=== PATIENT | male | born 1985 | race Caucasian/White ===

== ENCOUNTER 2016-11-23 10:06 | Emergency (ER) | payer OTHER, SELFPAY ==
[2016-11-23] MEDS ORDERED: IBUPROFEN 600 MG TAB PO STA (10:29)
--- NOTE | 2016-11-23 11:12 | XR ---
EXAMINATION TYPE: XR knee complete RT DATE OF EXAM: 11/23/2016 COMPARISON: NONE HISTORY: Pain TECHNIQUE: Three-view right knee FINDINGS: Joint spaces are preserved. No joint effusion is evident. No acute fractures evident. IMPRESSION: 1. Normal three-view right knee. 2. Follow-up exams can be performed 7-10 days from acute trauma for continued pain.
--- NOTE | 2016-11-23 11:25 | ED ---
General Adult HPI - General Chief complaint: Extremity Injury, Lower Stated complaint: Right knee pain Time Seen by Provider: 11/23/16 10:18 Source: patient, RN notes reviewed Mode of arrival: wheelchair Limitations: no limitations - History of Present Illness Initial comments: 30-year-old male presents with a 2 day history of right knee pain. Patient states that he felt pop in his knee followed by pain which has progressively worsened over the past several days. There was no trauma, he states he was just bending his knee at the time. Pain is worse with movement. He had similar incident with his left knee that did require ACL repair. Patient denies any fever. Denies warmth over the joint. Denies any hip or ankle pain on the right. - Related Data Home Medications Medication Instructions Recorded Confirmed Baclofen [Lioresal] 10 mg PO Q8H PRN 03/27/16 03/27/16 Cetirizine HCl [Zyrtec] 10 mg PO DAILY 03/27/16 03/27/16 Multivitamins, Thera [Multivitamin] 1 tab PO DAILY 03/27/16 03/27/16 Mayo-3 Fatty Acids/Fish Oil [Fish 1 cap PO DAILY 03/27/16 03/27/16 Oil 1,000 mg Softgel] Previous Rx's Medication Instructions Recorded Ibuprofen [Motrin] 600 mg PO Q8HR PRN #24 tab 11/23/16 Allergies Allergy/AdvReac Type Severity Reaction Status Date / Time No Known Allergies Allergy Verified 11/23/16 10:14 Review of Systems ROS Statement: Those systems with pertinent positive or pertinent negative responses have been documented in the HPI. ROS Other: All systems not noted in ROS Statement are negative. Past Medical History Past Medical History: Hypertension History of Any Multi-Drug Resistant Organisms: None Reported Past Surgical History: Appendectomy, Orthopedic Surgery, Tonsillectomy Additional Past Surgical History / Comment(s): Left ACL, left shoulder x3 Past Anesthesia/Blood Transfusion Reactions: No Reported Reaction Past Psychological History: No Psychological Hx Reported Smoking Status: Never smoker Past Alcohol Use History: Occasional Past Drug Use History: None Reported - Past Family History Mother History Unknown: Yes Family Medical History: Hyperlipidemia Father Family Medical History: No Reported History General Exam Limitations: no limitations General appearance: alert, in no apparent distress Head exam: Present: atraumatic, normocephalic Eye exam: Present: normal appearance, PERRL ENT exam: Present: normal exam, normal oropharynx Neck exam: Present: normal inspection. Absent: tenderness Respiratory exam: Present: normal lung sounds bilaterally. Absent: respiratory distress Cardiovascular Exam: Present: regular rate, normal rhythm GI/Abdominal exam: Present: soft. Absent: distended, tenderness Extremities exam: Present: full ROM, normal capillary refill, joint swelling, other (Right knee: Range of motion is normal, there is significant pain on active extension and flexion. Distal pulses are intact. There is a small joint effusion present. Popliteal artery pulses 2+. Knee is stable.). Absent : pedal edema Back exam: Present: normal inspection Neurological exam: Present: alert, oriented X3 Psychiatric exam: Present: normal affect, normal mood Skin exam: Present: warm, dry Course Vital Signs 11/23/16 10:09 Temperature 98.5 F Pulse Rate 68 Respiratory 16 Rate Blood Pressure 138/98 O2 Sat by Pulse 99 Oximetry Medical Decision Making - Medical Decision Making 30-year-old male with acute onset right knee pain. Patient states he felt a pop and does have a history of ACL injury on the left with minimal trauma. X- rays obtained in the emergency Department data for acute fracture dislocation. There is some mild effusion on examination, no warmth, no concern for septic arthritis. Patient is placed in a knee immobilizer, given prescription for pain medication and crutches and will follow up with orthopedic surgery as an outpatient. Disposition Clinical Impression: Knee clicking Disposition: HOME SELF-CARE Instructions: Knee Sprain (ED) Additional Instructions: Patient will follow-up with orthopedic surgery and return to the emergency department with worsening pain. Prescriptions: Ibuprofen [Motrin] 600 mg PO Q8HR PRN #24 tab PRN Reason: Pain Referrals: Mili Brown MD [Primary Care Provider] - 1-2 days Hector Tapia DO [Doctor of Osteopathic Medicine] - 1-2 days
[2016-11-23 11:33] VITALS: BP 130/71; PULSE 55; RESP 18; TEMP 97.1
== END 2016-11-23 11:33 | disposition home or self-care (01) ==
LOC: EC 10:06
DX: R29.898 Other symptoms and signs involving the musculoskeletal system (principal); M25.461 Effusion, right knee; Z79.899 Other long term (current) drug therapy; X50.1XXA Overexertion from prolonged static or awkward postures, initial encounter; Y93.89 Activity, other specified; Y92.009 Unspecified place in unspecified non-institutional (private) residence as the place of occurrence of the external cause
CPT/HCPCS: 73562; 99283; L1830

== ENCOUNTER → 2017-10-27 | Outpatient (CLI) | payer OTHER ==
--- NOTE | 2017-10-28 08:36 | CT ---
EXAMINATION TYPE: CT abdomen pelvis w con DATE OF EXAM: 10/27/2017 COMPARISON: NONE INDICATION: Abdominal cramping, change in bowel habits, heartburn and weight loss. DLP: 574.7 mGycm, Automated exposure control for dose reduction was used. CONTRAST: 100 mL of Isovue 300. Study performed with Oral Contrast TECHNIQUE: Axial images were obtained from above the diaphragm to the pubic rami in the axial plane a t 5 mm thick sections. Reconstructed images are reviewed on the computer in the coronal plane. FINDINGS: Limited CT sections are obtained the lung bases. The lung bases are clear. CT ABDOMEN: Liver: Normal Spleen: Normal Pancreas: Normal Adrenal glands: The adrenal glands are normal. Gallbladder: Normal Kidneys: No masses are evident. No hydronephrosis is present. No cysts are present. Delayed images were obtained through the kidneys, which remain unremarkable. Aorta: Normal Inferior vena cava: Normal. CT PELVIS: There is an area of thickening of the mid left abdominal small bowel. Series 3 image 48, series 7 audelia ge 36. An intussusception of the small bowel may be present at this location. Contrast passes well be yond this location and no obstruction is evident. There are loops of bowel which are incompletely dis tended or lack oral contrast limiting their evaluation. Few diverticuli are within the sigmoid colon. No acute diverticulitis is evident. Appendix: Appears to be surgically absent. Urinary bladder: Normal. Genitourinary structures: Prostate is unremarkable. Osseous structures: No suspicious lytic or sclerotic lesions. IMPRESSIONS: 1. There may be a small bowel intussusception within the left midabdomen without evidence of obstruc tion. 2. Examination otherwise appears unremarkable.
== END | disposition home or self-care (01) ==
LOC: RADCTMAIN 16:51
PROVIDERS: ATTEND Family Medicine
DX: R10.9 Unspecified abdominal pain (principal); R12 Heartburn; R19.4 Change in bowel habit; R63.4 Abnormal weight loss
CPT/HCPCS: 74177; Q9967

== ENCOUNTER → 2017-11-30 | Outpatient (CLI) | payer OTHER ==
--- NOTE | 2017-11-30 11:05 | NM ---
EXAMINATION TYPE: NM hepatobiliary w CCK DATE OF EXAM: 11/30/2017 COMPARISON: CT abdomen pelvis 10/27/2017 HISTORY: Right upper quadrant pain, gastroesophageal reflux disease TECHNIQUE: After the intravenous administration of 5.4 mCi Tc 99m Mebrofenin hepatobiliary scintigrap hy is performed. Immediate images post injection. FINDINGS: There is satisfactory initial accumulation of tracer by the liver. The gallbladder is visualized wit hin 6 minutes. The small bowel activity is noted within 4 minutes. At one hour CCK was administered , patient was injected with 1.7 mcg of Kinevac, and gallbladder ejection fraction is calculated at 89 %. Therefore there is no scintigraphic evidence of cystic or common bile duct obstruction to suggest acute cholecystitis. IMPRESSION: Gallbladder ejection fraction is 89%
== END | disposition home or self-care (01) ==
LOC: RADNMMAIN 06:59
PROVIDERS: ATTEND Surgery
DX: K21.9 Gastro-esophageal reflux disease without esophagitis (principal); R10.13 Epigastric pain; R10.11 Right upper quadrant pain
CPT/HCPCS: 78227; A9537; J2805

== ENCOUNTER 2017-12-15 08:31 | Day surgery (SDC) | payer OTHER ==
[2017-12-11 09:34] VITALS: BMI 26.2
[~2017-12-15 08:31] MED LIST: LACTATED RINGERS 1,000 ML IV SCH; LIDOCAINE 1% 20 ML VIAL (10MG/ML) FOR IV START INTRADERMA PRN
[2017-12-15] MEDS ORDERED: PROPOFOL 10 MG/ML 20 ML VIAL IV ONE (09:44)
--- NOTE | 2017-12-15 09:46 | P.GSHP ---
History of Present Illness H&P Date: 12/15/17 Chief Complaint: GERD [id number] male referred from Dr. Bo. Patient's had limited GERD. He presents today for EGD. Past Medical History Past Medical History: GERD/Reflux, Hypertension Additional Past Medical History / Comment(s): no rx for blood pressure, intussusception on CT, irregular bowel movements, History of Any Multi-Drug Resistant Organisms: None Reported Past Surgical History: Appendectomy, Orthopedic Surgery, Tonsillectomy Additional Past Surgical History / Comment(s): Left knee ACL, left shoulder x3- bankart procedure Past Anesthesia/Blood Transfusion Reactions: No Reported Reaction Smoking Status: Former smoker - Past Family History Mother History Unknown: Yes Family Medical History: No Reported History Father Family Medical History: No Reported History Medications and Allergies Home Medications Medication Instructions Recorded Confirmed Type Cetirizine HCl [Zyrtec] 10 mg PO DAILY 03/27/16 12/15/17 History Multivitamins, Thera [Multivitamin] 1 tab PO DAILY 03/27/16 12/15/17 History Amitriptyline HCl [Elavil] 25 mg PO 1800 12/11/17 12/15/17 History Dicyclomine [Bentyl] 20 mg PO DAILY PRN 12/11/17 12/15/17 History Omeprazole [PriLOSEC] 20 mg PO AC-BRKFST 12/11/17 12/15/17 History Allergies Allergy/AdvReac Type Severity Reaction Status Date / Time No Known Allergies Allergy Verified 12/15/17 08:51 Surgical - Exam Vital Signs Pulse BP Pulse Ox 48 L 149/81 98 12/15/17 08:56 12/15/17 08:56 12/15/17 08:56 - General well developed, well nourished, no distress - Eyes PERRL - ENT normal pinna - Neck no masses - Respiratory normal expansion - Cardiovascular Rhythm: regular - Abdomen Abdomen: soft, non tender Assessment and Plan Assessment: GERD. We'll perform EGD.
--- NOTE | 2017-12-15 10:00 | P.OP ---
Date of Procedure: 12/15/17 Preoperative Diagnosis: GERD Postoperative Diagnosis: Antral gastritis Moderate size hiatal hernia Esophagitis Procedure(s) Performed: EGD Anesthesia: MAC Surgeon: Ovi Mendoza Pathology: other (Antrum, esophagus) Condition: stable Disposition: PACU Description of Procedure: The patient's placed on the endoscopy table in the lateral position. He received IV sedation. The gastroscope placed oropharynx passed in the esophagus into the stomach. Scope was then placed through the pylorus. The first and second portion of duodenum appeared normal. Scope was then brought back the antrum this is mildly inflamed. A biopsies performed. The scope was then retroflexed and the remainder of the stomach. Normal. There was a moderate size hiatal hernia. The GE junction was at 38 cm. The distal esophagus was mildly inflamed a biopsies performed. The proximal esophagus appeared normal. The scope was withdrawn from patient.
[2017-12-15 10:07] VITALS: RESP 16
[2017-12-15 10:27] VITALS: BP 114/74; PULSE 45
== END 2017-12-15 10:36 | disposition home or self-care (01) ==
LOC: ORWHC2ENDO 08:31
PROVIDERS: ATTEND Surgery
DX: K29.50 Unspecified chronic gastritis without bleeding (principal); K21.0 Gastro-esophageal reflux disease with esophagitis; K44.9 Diaphragmatic hernia without obstruction or gangrene; R19.4 Change in bowel habit; I10 Essential (primary) hypertension; Z87.891 Personal history of nicotine dependence; Z79.899 Other long term (current) drug therapy
CPT/HCPCS: 88305; 43239; J2704

== ENCOUNTER → 2017-12-31 | Day surgery (SDC) | payer OTHER ==
[2017-12-24 11:20] VITALS: BMI 26.6
[~2017-12-31] MED LIST changes: +BUPIVACAINE (PF) 0.5% 30 ML VIAL SQ ONE; +DEXAMETHASONE SOD PHOSPHATE 10 MG/ML 1 ML VIAL IV ONE; +GLYCOPYRROLATE 0.2 MG/ML 2 ML VIAL ONE; +HEPARIN SODIUM,PORCINE 5,000 UNIT/ML 1 ML VIAL SQ ONE; +HYDROcodone/APAP 7.5-325MG 1 EACH TAB PO ONE; +HYDROmorphone (PF) 1 MG/ML ONE; +HYDROmorphone 0.5 MG/0.5 ML SYRINGE IVP PRN; +KETOROLAC 30 MG/ML 1 ML VIAL ONE; +LIDOCAINE 1% INJ 10MG/ML (20 ML MDV) ONE; +MIDAZOLAM 2 MG/2 ML VIAL IV PRN; +MIDAZOLAM 2 MG/2 ML VIAL ONE; +NEOSTIGMINE 1 MG/ML 10 ML VIAL ONE; +ONDANSETRON 4 MG/2 ML VIAL IVP ONE; +PROPOFOL 10 MG/ML 20 ML VIAL IV ONE; +ROCURONIUM BROMIDE 10 MG/ML 10 ML VIAL IV ONE; +SCOPOLAMINE 1.5MG/72HR PATCH TRANSDERM ONE; +SUCCINYLCHOLINE CHLORIDE 100 MG/5 ML SYR IV ONE; +ceFAZolin IN SWFI 2 GM/20 ML SYRINGE IVP ONE; +fentaNYL (PF) 50 MCG/ML 2 ML AMP ONE
--- NOTE | 2017-12-31 07:45 | P.GSHP ---
History of Present Illness H&P Date: 12/31/17 Chief Complaint: Right upper quadrant pain This is a 32-year-old male who's had complaints of right upper quadrant pain. His recent HIDA scan shows abnormal ejection fraction consistent with biliary dyskinesia and chronic cholecystitis. Rents today for laparoscopic cholecystectomy.. Past Medical History Past Medical History: GERD/Reflux, Hypertension Additional Past Medical History / Comment(s): no rx for blood pressure, intussusception on CT, irregular bowel movements, HIATAL HERNIA, GALLBLADDER DISORDER History of Any Multi-Drug Resistant Organisms: None Reported Past Surgical History: Appendectomy, Orthopedic Surgery, Tonsillectomy Additional Past Surgical History / Comment(s): Left knee ACL, left shoulder x3- bankart procedure, EGD Past Anesthesia/Blood Transfusion Reactions: No Reported Reaction Smoking Status: Former smoker - Past Family History Mother History Unknown: Yes Family Medical History: No Reported History Father Family Medical History: No Reported History Medications and Allergies Home Medications Medication Instructions Recorded Confirmed Type Cetirizine HCl [Zyrtec] 10 mg PO DAILY 03/27/16 12/31/17 History Multivitamins, Thera [Multivitamin] 1 tab PO DAILY 03/27/16 12/31/17 History Amitriptyline HCl [Elavil] 25 mg PO 1800 12/11/17 12/31/17 History Dicyclomine [Bentyl] 20 mg PO DAILY PRN 12/11/17 12/31/17 History Omeprazole [PriLOSEC] 20 mg PO AC-BRKFST 12/11/17 12/31/17 History Allergies Allergy/AdvReac Type Severity Reaction Status Date / Time No Known Allergies Allergy Verified 12/31/17 06:56 Surgical - Exam Vital Signs Temp Pulse Resp BP Pulse Ox 98.2 F 70 16 146/77 97 12/31/17 07:06 12/31/17 07:06 12/31/17 07:06 12/31/17 07:06 12/31/17 07:06 - General well developed, well nourished, no distress - Eyes PERRL - ENT normal pinna - Neck no masses - Respiratory normal expansion - Cardiovascular Rhythm: regular - Abdomen Abdomen: soft, non tender Assessment and Plan Assessment: Chronic cholecystitis. We'll perform laparoscopic cholecystectomy.
--- NOTE | 2017-12-31 08:37 | P.OP ---
Date of Procedure: 12/31/17 Preoperative Diagnosis: Cholecystitis Postoperative Diagnosis: Cholecystitis Procedure(s) Performed: Laparoscopic cholecystectomy Anesthesia: RK Surgeon: Ovi Mendoza Pathology: other (Gallbladder) Condition: stable Disposition: PACU Description of Procedure: The patient was placed on the operating table. The patient received a general endotracheal tube anesthesia. The patients abdomen was prepped and draped in the usual sterile fashion. Through an infraumbilical stab incision, the fascia of the anterior abdominal wall was grasped with a pair of Kochers and then the Veress needle was placed in the peritoneal cavity. Position of the Veress needle was confirmed with positive drop test. The abdomen was then insufflated. After adequate insufflation, the 10 mm trocar was placed in the peritoneal cavity. Following this the laparoscope was placed in the peritoneal cavity. The patient was placed in the head-up, right side up position and then a 5 mm trocar was placed in the right lateral and right subcostal position under direct visualization. A 8 mm trocar was placed in the epigastric position. The gallbladder was grasped in the fundus and infundibulum. Traction on the gallbladder was placed in the lateral and the cephalad positions. The triangle of Calot was visualized.. The cystic duct was bluntly dissected until the union of the cystic duct and common bile duct was seen. The cystic duct was then divided and sealed with the Harmonic scissors. A PDS Endoloop was then placed throughout the cystic duct stump. The cystic artery divided and sealed with the Harmonic scissors. The gallbladder was then removed from the liver bed using Harmonic scissors. The gallbladder was then extracted through the epigastric port site. Operative field was checked for any bleeding spots and Harmonic scissors was used to coagulate the liver bed. The abdomen was irrigated. The trocars were removed. The skin was closed using interrupted 3-0 Vicryl suture. Dermabond dressing were applied. The patient tolerated the procedure well.
[2017-12-31 08:52] VITALS: TEMP 97.5
[2017-12-31 10:03] VITALS: BP 130/83; PULSE 47; RESP 18
== END | disposition home or self-care (01) ==
LOC: OR 12:04
PROVIDERS: ATTEND Surgery
DX: K81.1 Chronic cholecystitis (principal); K21.9 Gastro-esophageal reflux disease without esophagitis; K44.9 Diaphragmatic hernia without obstruction or gangrene; I10 Essential (primary) hypertension; Z79.899 Other long term (current) drug therapy; Z87.891 Personal history of nicotine dependence
CPT/HCPCS: 47562; 88304; J2250; J1644; J1100; J2710; J2405; J2001; J3010; J1885; J1170; J0330; J2704; J0690

== ENCOUNTER 2018-01-11 09:06 | Observation (INO) | payer OTHER ==
[2018-01-05 12:48] VITALS: BMI 26.6
[~2018-01-11 09:06] MED LIST changes: -BUPIVACAINE (PF) 0.5% 30 ML VIAL SQ ONE; -GLYCOPYRROLATE 0.2 MG/ML 2 ML VIAL ONE; -HYDROcodone/APAP 7.5-325MG 1 EACH TAB PO ONE; -HYDROmorphone (PF) 1 MG/ML ONE; -HYDROmorphone 0.5 MG/0.5 ML SYRINGE IVP PRN; -KETOROLAC 30 MG/ML 1 ML VIAL ONE; -LACTATED RINGERS 1,000 ML IV SCH; -LIDOCAINE 1% 20 ML VIAL (10MG/ML) FOR IV START INTRADERMA PRN; -LIDOCAINE 1% INJ 10MG/ML (20 ML MDV) ONE; -MIDAZOLAM 2 MG/2 ML VIAL IV PRN; -MIDAZOLAM 2 MG/2 ML VIAL ONE; -NEOSTIGMINE 1 MG/ML 10 ML VIAL ONE; -PROPOFOL 10 MG/ML 20 ML VIAL IV ONE; -ROCURONIUM BROMIDE 10 MG/ML 10 ML VIAL IV ONE; -SCOPOLAMINE 1.5MG/72HR PATCH TRANSDERM ONE; -SUCCINYLCHOLINE CHLORIDE 100 MG/5 ML SYR IV ONE; -fentaNYL (PF) 50 MCG/ML 2 ML AMP ONE
[2018-01-11] MEDS ORDERED: LIDOCAINE 1% 20 ML VIAL (10MG/ML) FOR IV START INTRADERMA ONE (09:39)
[2018-01-11] MEDS: LACTATED RINGERS 1,000 ML IV SCH (09:41)
--- NOTE | 2018-01-11 10:25 | P.GSHP ---
History of Present Illness H&P Date: 01/11/18 Chief Complaint: GERD This is a 32-year-old male referred from Dr. Brown. The patient has had long-standing problems with reflux esophagitis. The patient underwent recent EGD is found have evidence of esophagitis. Patient has been well informed on the procedure of laparoscopic Shon fundoplication. The patient is aware the risk of the conversion to the open procedure, risk of injury to the stomach, liver and spleen. The patient is also a risk of recurrent GERD and dysphagia symptoms. The patient understands there is a postoperative diet of full liquids for 2 weeks after surgery. Past Medical History Past Medical History: GERD/Reflux, Hypertension Additional Past Medical History / Comment(s): OCC ELEV BLOOD PRESSURE, No RX REQUIRED. "POSS Intussusception, DIVERTICULI on CT 10/2017." Irregular bowel movements. HIATAL HERNIA. GALLBLADDER REMOVAL 12/31/17, INCISION HEALING. History of Any Multi-Drug Resistant Organisms: None Reported Past Surgical History: Appendectomy, Cholecystectomy, Orthopedic Surgery, Tonsillectomy Additional Past Surgical History / Comment(s): Left knee ACL, Left shoulder x3- bankart procedure, EGD. Past Anesthesia/Blood Transfusion Reactions: No Reported Reaction, Family History of Problems w/ Anesthesia Additional Past Anesthesia/Blood Transfusion Reaction / Comment(s): " GRANDFATHER HAD BAD EPISODE, LOST VITALS, OLDER IN AGE." Smoking Status: Former smoker - Past Family History Mother History Unknown: Yes Family Medical History: No Reported History Father Family Medical History: No Reported History Medications and Allergies Home Medications Medication Instructions Recorded Confirmed Type Cetirizine HCl [Zyrtec] 10 mg PO DAILY 03/27/16 01/11/18 History Multivitamins, Thera [Multivitamin] 1 tab PO DAILY 03/27/16 01/11/18 History Amitriptyline HCl [Elavil] 25 mg PO 1800 12/11/17 01/11/18 History Dicyclomine [Bentyl] 20 mg PO DAILY PRN 12/11/17 01/11/18 History Omeprazole [PriLOSEC] 20 mg PO AC-BRKFST 12/11/17 01/11/18 History Docusate [Colace] 100 mg PO BID PRN 01/05/18 01/11/18 History Metamucil Powder (Unknown Dose 1 dose PO DAILY PRN 01/05/18 01/11/18 History Allergies Allergy/AdvReac Type Severity Reaction Status Date / Time No Known Allergies Allergy Verified 01/11/18 09:43 Surgical - Exam Vital Signs Temp Pulse Resp BP Pulse Ox 97.9 F 49 L 14 127/73 100 01/11/18 09:32 01/11/18 09:32 01/11/18 09:32 01/11/18 09:32 01/11/18 09:32 - General well developed, no distress - Eyes PERRL - ENT normal pinna - Neck no masses - Respiratory normal expansion - Cardiovascular Rhythm: regular - Abdomen Abdomen: soft, non tender Assessment and Plan Assessment: GERD. We will perform laparoscopic Shon fundal plication.
[2018-01-11] MEDS ORDERED: MIDAZOLAM 2 MG/2 ML VIAL ONE (10:49)
[2018-01-11] MEDS ORDERED: GLYCOPYRROLATE 0.2 MG/ML 2 ML VIAL ONE (10:49)
[2018-01-11] MEDS ORDERED: fentaNYL (PF) 50 MCG/ML 2 ML AMP ONE (10:49)
[2018-01-11] MEDS ORDERED: NEOSTIGMINE 1 MG/ML 10 ML VIAL ONE (10:49)
[2018-01-11] MEDS ORDERED: PROPOFOL 10 MG/ML 20 ML VIAL IV ONE (10:49)
[2018-01-11] MEDS ORDERED: ROCURONIUM BROMIDE 10 MG/ML 10 ML VIAL IV ONE (10:49)
[2018-01-11] MEDS ORDERED: LIDOCAINE 1% INJ 10MG/ML (20 ML MDV) ONE (10:49)
[2018-01-11] MEDS ORDERED: SUCCINYLCHOLINE CHLORIDE VIAL 200 MG/10 ML VIAL IV ONE (10:49)
[2018-01-11] MEDS ORDERED: LACTATED RINGERS 1,000 ML IV ONE (11:15)
[2018-01-11] MEDS ORDERED: BUPIVACAIN-EPI 0.5%-1:200,000 30 ML VIAL SQ ONE (11:18)
--- NOTE | 2018-01-11 11:55 | P.OP ---
Date of Procedure: 01/11/18 Preoperative Diagnosis: GERD Postoperative Diagnosis: GERD Procedure(s) Performed: Laparoscopic Shon fundal plication Anesthesia: RK Surgeon: Ovi Mendoza Estimated Blood Loss (ml): 10 Pathology: none sent Condition: stable Disposition: PACU Description of Procedure: The patient was placed on the operating table in the supine position. The patient received general anesthesia. And was placed in dorsal lithotomy position. The patient was prepped and draped in the usual sterile fashion. The skin incision sites were anesthetized with 1% local Xylocaine. The skin was incised in the left periumbilical area and then using a blade less 5 mm trocar under direct visualization panel cavity was entered. After adequate insufflation the laparoscope was then placed into the peritoneal cavity. Next a 5 mm trochars placed in the right epigastric position. Another 5 millimeter trocar the right lateral position. Another 5 millimeter trocar in the left lateral position a 5 mm trocar is placed in the left epigastric position. And then the initial 5 mm trocar was exchanged for a 10 mm trocar. The left lateral lobe liver was retracted. The hernia was seen. The crural defect was then dissected using the Harmonic scissors device. A 360 crural dissection was performed the esophagus stomach was reduced back into the peritoneal Cavity. The crural defect was then closed using 2-0 Ethibond suture. Next the fundus of the stomach was mobilized using the [place] scissors device. and then a 58-[place] bougie dilator was placed oropharynx passed into the esophagus and stomach the fundal plication wrap was then performed by grasping the fundus posteriorly and bringing it around the esophagus and stomach fundoplication was then performed using 2-0 Ethibond suture. Care was taken that the fundal location rested over top of the intra-abdominal esophagus. There was no injury seen to the stomach or esophagus. The dilator was then withdrawn. The abdomen was irrigated there is no bleeding seen. The trochars were then withdrawn and then skin incision sites were closed using 3-0 Monocryl suture Steri-Strips are applied. Patient thought procedure well and sent to recovery room in stable condition.
[2018-01-11] MEDS: HYDROmorphone 0.5 MG/0.5 ML SYRINGE IVP PRN ×4 (12:02→12:41)
[2018-01-11] MEDS: fentaNYL (PF) 50 MCG/ML 2 ML AMP IVP ONE ×2 (12:11→12:18)
[2018-01-11] MEDS: METOCLOPRAMIDE 5 MG/ML 2 ML VIAL IVP SCH ×2 (13:45→18:20)
[2018-01-11] MEDS: HYDROmorphone 1 MG/ML 1 ML SYRINGE IVP PRN ×2 (15:03→19:41)
--- NOTE | 2018-01-11 18:35 | FL ---
EXAMINATION TYPE: FL esophagus cervic/pharynx DATE OF EXAM: 01/11/2018 HISTORY: Post Beau COMPARISON: NONE TECHNIQUE: Single contrast technique is utilized to evaluate the Beau fundoplication FINDINGS: No free air is evident on fluoroscopy. Contrast passes through the Beau fundoplication ar ea with severe hesitancy. However, no complete obstruction is evident. The esophagus does completely empty during the exam. No extravasation is evident. IMPRESSION: 1. No extravasation of contrast post Beau fundoplication
[2018-01-11 19:39] VITALS: RESP 18
[2018-01-11] MEDS: D5-0.45% NACL WITH KCL 20MEQ/L 1,000 ML IV SCH ×2 (21:13→22:18)
[2018-01-11] MEDS ORDERED: HYDROmorphone 1 MG/ML 1 ML SYRINGE IVP PRN (21:19)
[2018-01-11] MEDS ORDERED: PANTOPRAZOLE 40 MG/10 ML VIAL IVP ONE (22:46)
[2018-01-12] MEDS: METOCLOPRAMIDE 5 MG/ML 2 ML VIAL IVP SCH ×3 (00:39→11:42)
[2018-01-12] MEDS: HYDROmorphone 1 MG/ML 1 ML SYRINGE IVP PRN ×2 (03:03→07:35)
[2018-01-12] MEDS: D5-0.45% NACL WITH KCL 20MEQ/L 1,000 ML IV SCH (03:04)
[2018-01-12] MEDS: LACTATED RINGERS 1,000 ML IV SCH (03:05)
[2018-01-12] MEDS ORDERED: PANTOPRAZOLE 40 MG TABLET PO SCH (07:30)
[2018-01-12 07:45] VITALS: BP 149/87; PULSE 60; TEMP 98.7
--- NOTE | 2018-01-12 08:32 | CONS ---
CONSULTATION The reason for consultation is advice regarding GERD and other multiple medical issues requested by Dr. Mendoza. HISTORY OF PRESENT ILLNESS: This 32-year-old gentleman with a past medical history of GERD, hypertension, history intussusception, history depression being followed by Dr. Mili Brown in the outpatient setting underwent laparoscopic Shon fundoplication for GERD by Dr. Mendoza. There is no history of chest pain. No history of palpitation. No history of headache, loss of consciousness, nausea, vomiting, diarrhea, fever, rigors and chills. PAST MEDICAL HISTORY: GERD, hypertension, cholecystectomy, depression. MEDICATIONS: Medications prior to admission include: 1. Prilosec 20 mg daily. 2. Multivitamin one p.o. daily. 3. Metamucil. 4. Colace 100 mg . 5. Bentyl 20 mg. 6. Zyrtec 10 mg. 7. Elavil 25 mg. ALLERGIES: Allergies are none. FAMILY HISTORY: No history of heart disease or strokes in the family. SOCIAL HISTORY: History of occasional alcohol use. Previous history of smoking, THC. REVIEW OF SYSTEMS: ENT: No diminished hearing or diminished vision. CARDIOVASCULAR SYSTEM: No angina. RESPIRATORY SYSTEM: No cough. GI: As mentioned earlier. : No dysuria. NERVOUS SYSTEM: No numbness or weakness. ALLERGY/IMMUNOLOGY: No asthma. MUSCULOSKELETAL: As mentioned earlier. HEMATOLOGY/ONCOLOGY: No history of anemia. ENDOCRINE: No history of diabetes mellitus or hypothyroidism. CONSTITUTIONAL: As mentioned earlier. DERMATOLOGY: Negative. RHEUMATOLOGY: Negative. PSYCHIATRY: As mentioned earlier. PHYSICAL EXAMINATION: The patient is alert and oriented x3. Pulse is 46, blood pressure 137/70, respiration 18, temperature 97.3, pulse ox 97% on room air. HEENT: Conjunctivae normal. Oral mucosa moist. Neck is no jugular venous distention. No carotid bruit. No lymph node enlargement. CARDIOVASCULAR: S1 and S2 muffled. RESPIRATORY: Breath sounds diminished at the bases. No rhonchi, no crackles. ABDOMEN: Soft. Status post surgery. LEGS: No edema, no swelling. NERVOUS SYSTEM: Higher functions as mentioned. Moves all 4 limbs. No focal motor deficits. LYMPHATICS: No lymph nodes palpable in the neck, axillae or groin. SKIN: No ulcer, rash or bleeding. LABS: Previous EKG in 2016 revealed sinus bradycardia. Previous labs in the computer reviewed. No recent labs available. ASSESSMENT: 1. Status post laparoscopic Shon fundoplication. 2. Sinus bradycardia, possibly. 3. Hypertension. 4. History of gastroesophageal reflux disease. 5. History of intussusception. 6. History of appendectomy. 7. History of cholecystectomy. 8. History of degenerative joint disease. 9. History of depression. 10.Remote history of nicotine dependence. 11.History of THC. RECOMMENDATIONS AND DISCUSSION: This 32-year-old gentleman who presented with multiple complex medical issues, we will monitor the patient closely. Continue the current medications, continue symptomatic treatment. The blood pressure is acceptable at this time. The patient has some bradycardia. Recommend close follow up with the primary physician. The home medication could be started once the patient is p.o. Otherwise we will follow the patient closely with you and DVT prophylaxis, incentive spirometry. The patient will be asked to follow up with Dr. Mili Brown closely in the outpatient setting. Thank you Dr. Mendoza for letting us participate in the care of this patient. MMSUSANNAHL / BROWNN: [id number] / MTDD
[2018-01-12] MEDS ORDERED: LORATADINE 10 MG TAB PO SCH (09:00)
[2018-01-12] MEDS ORDERED: ENOXAPARIN 40 MG/0.4 ML SYRINGE SQ SCH (09:00)
[2018-01-12] MEDS ORDERED: PANTOPRAZOLE 40 MG/10 ML VIAL IVP SCH (09:00)
--- NOTE | 2018-01-12 10:40 | P.DS ---
Providers Date of admission: 01/11/18 23:06 Expected date of discharge: 01/12/18 Attending physician: Ovi Mendoza Consults: 01/11/18 11:55 Consult Physician Routine Consulting Provider: Elizabeth Quintero Consult Reason/Comments: Medical management Do you want consulting provider notified?: Yes Primary care physician: [facility] Hospital Course: 32-year-old male long-standing history with reflux esophagitis underwent an EGD recently showed evidence of esophagitis. Patient elected to proceed with laparoscopic Shon fundoplication for symptomatic esophageal reflux symptoms postop events patient tolerated diet was felt to be appropriate to be discharged Impression discharge diagnosis Status post January 11 laparoscopic Shon fundoplication for symptomatic esophageal reflex symptoms failing outpatient treatment A recent EGD showing evidence of esophagitis The above impression and plan of care have been discussed and directed by signing physician. Malini Mack nurse practitioner acting as scribe for signing physician. Plan - Discharge Summary Discharge Rx Participant: No New Discharge Prescriptions: New HYDROcodone/APAP 5-325MG [Melvin 5-325] 1 tab PO Q4HR PRN 3 Days #18 tab PRN Reason: Mild Pain Continue Multivitamins, Thera [Multivitamin (formulary)] 1 tab PO DAILY Cetirizine HCl [Zyrtec] 10 mg PO DAILY Dicyclomine [Bentyl] 20 mg PO DAILY PRN PRN Reason: bowel spasms Amitriptyline HCl [Elavil] 25 mg PO DAILY@1800 Docusate [Colace] 100 mg PO BID PRN PRN Reason: POST-OP ORDER Metamucil Powder (Unknown Dose 1 dose PO DAILY PRN PRN Reason: Constipation Discontinued Omeprazole [PriLOSEC] 20 mg PO AC-BRKFST Discharge Medication List Cetirizine HCl [Zyrtec] 10 mg PO DAILY 03/27/16 [History] Multivitamins, Thera [Multivitamin (formulary)] 1 tab PO DAILY 03/27/16 [History ] Amitriptyline HCl [Elavil] 25 mg PO DAILY@1800 12/11/17 [History] Dicyclomine [Bentyl] 20 mg PO DAILY PRN 12/11/17 [History] Docusate [Colace] 100 mg PO BID PRN 01/05/18 [History] Metamucil Powder (Unknown Dose 1 dose PO DAILY PRN 01/05/18 [History] HYDROcodone/APAP 5-325MG [Melvin 5-325] 1 tab PO Q4HR PRN 3 Days #18 tab [Rx] Follow up Appointment(s)/Referral(s): Ovi Mendoza MD [STAFF PHYSICIAN] - 1 Week Activity/Diet/Wound Care/Special Instructions: Postop Shon instructions No tub bath for six weeks. Shower daily. Start tomorrow if needed No lifting over 10 pounds for the next 6 weeks. To not remove the plastic dressings until seen in follow-up visit May use ice packs to surgical site. No driving while taking narcotic for pain. May return to work next week Full liquid diet for 2 weeks after surgery Discharge Disposition: HOME WITH HOME HEALTH SERVICES
[2018-01-12] MEDS ORDERED: ACETAMINOPHEN IV (For NPO) 1,000 MG in EMPTY BAG 1 BAG IVPB ONE (10:45)
[2018-01-12] MEDS ORDERED: AMITRIPTYLINE HCL 25 MG TAB PO SCH (18:00)
--- NOTE | 2018-01-12 18:38 | PN ---
PROGRESS NOTE DATE OF SERVICE: 01/12/2018 This 32-year-old gentleman who was admitted after laparoscopic Shon fundoplication is improving significantly. The patient has sinus bradycardia which was noted previously. No chest pain. No palpitations. No fever. PHYSICAL EXAMINATION: Alert and oriented x3. Pulse 60, blood pressure 149/87, respiration 18, temperature 98.7, pulse ox 98% on room air. HEENT: Conjunctivae normal. Oral mucosa moist. NECK: No jugular venous distention. CARDIOVASCULAR SYSTEM: S1, S2 muffled. RESPIRATORY SYSTEM: Breath sounds diminished at the bases. No rhonchi. No crackles. ABDOMEN: Soft. Status post surgery. NERVOUS SYSTEM: No focal deficit. LABS: Not available. ASSESSMENT: 1. Status post laparoscopic Shon fundoplication. 2. Sinus bradycardia, possibly. 3. Hypertension. 4. Gastroesophageal reflux disease. 5. History of intussusception. 6. History of appendectomy. 7. History of degenerative joint disease. 8. History of depression. 9. Remote history of nicotine dependence. 10.History of tetrahydrocannabinol. RECOMMENDATIONS AND DISCUSSION: I recommend to continue current medication, continue symptomatic treatment. Follow up with Dr. Mili Brwon in the outpatient setting for evaluation and monitoring of the above-mentioned multiple complex medical issues. Rest of the recommendations per Dr. Mendoza. Further recommendations to follow. MMODL / IJN: [id number] /
== END 2018-01-12 13:17 | disposition home health service (06) ==
LOC: OR 09:06 → 3SUR 11:52 → OR 23:06
PROVIDERS: ADMIT Surgery; ATTEND Surgery
DX: K21.0 Gastro-esophageal reflux disease with esophagitis (principal); I10 Essential (primary) hypertension; K44.9 Diaphragmatic hernia without obstruction or gangrene; M19.90 Unspecified osteoarthritis, unspecified site; F32.9 Major depressive disorder, single episode, unspecified; Z79.899 Other long term (current) drug therapy; Z87.891 Personal history of nicotine dependence; Z86.59 Personal history of other mental and behavioral disorders; Z87.19 Personal history of other diseases of the digestive system; Z90.89 Acquired absence of other organs; Z90.49 Acquired absence of other specified parts of digestive tract
CPT/HCPCS: 93005; 74210; 43280; G0378 ×2; J2250; J0330; J1644; J1100; J2710; J2765 ×2; J2405; J2001; J1650; J3010; J1170 ×3; J0131; J2704; C9113 ×2; J0690; Q9967

== ENCOUNTER 2018-04-26 08:07 | Day surgery (SDC) | payer BC, OTHER ==
[2018-04-22 13:47] VITALS: BMI 27.6
[~2018-04-26 08:07] MED LIST changes: -DEXAMETHASONE SOD PHOSPHATE 10 MG/ML 1 ML VIAL IV ONE; -HEPARIN SODIUM,PORCINE 5,000 UNIT/ML 1 ML VIAL SQ ONE; +LACTATED RINGERS 1,000 ML IV SCH; +LIDOCAINE 1% 20 ML VIAL (10MG/ML) FOR IV START INTRADERMA PRN; -ONDANSETRON 4 MG/2 ML VIAL IVP ONE; -ceFAZolin IN SWFI 2 GM/20 ML SYRINGE IVP ONE
[2018-04-26] MEDS ORDERED: LIDOCAINE 1% INJ 10MG/ML (20 ML MDV) ONE (09:13)
[2018-04-26] MEDS ORDERED: PROPOFOL 10 MG/ML 20 ML VIAL IV ONE (09:13)
[2018-04-26] MEDS ORDERED: fentaNYL (PF) 50 MCG/ML 2 ML AMP ONE (09:13)
[2018-04-26 09:14] VITALS: RESP 16; TEMP 98.1
--- NOTE | 2018-04-26 09:18 | P.GSHP ---
History of Present Illness H&P Date: 04/26/18 Chief Complaint: Constipation This is a 30-year-old male has had trouble with constipation. Patient rents today for colonoscopy. Past Medical History Past Medical History: GERD/Reflux, Hypertension Additional Past Medical History / Comment(s): having pressure in rectum area- worse in the am,OCC ELEV BLOOD PRESSURE, No RX REQUIRED. Intussusception, DIVERTICULI on CT 10/2017." Irregular bowel movements. HIATAL HERNIA. History of Any Multi-Drug Resistant Organisms: None Reported Past Surgical History: Appendectomy, Cholecystectomy, Orthopedic Surgery, Tonsillectomy Additional Past Surgical History / Comment(s): Left knee ACL, Left shoulder x3- bankart procedure, EGD,Shon fund. Past Anesthesia/Blood Transfusion Reactions: No Reported Reaction, Family History of Problems w/ Anesthesia Additional Past Anesthesia/Blood Transfusion Reaction / Comment(s): " GRANDFATHER HAD BAD EPISODE, LOST VITALS, OLDER IN AGE." Smoking Status: Former smoker - Past Family History Mother History Unknown: Yes Family Medical History: No Reported History Father Family Medical History: No Reported History Medications and Allergies Home Medications Medication Instructions Recorded Confirmed Type Multivitamins, Thera [Multivitamin 1 tab PO DAILY 03/27/16 04/26/18 History (formulary)] Amitriptyline HCl [Elavil] 75 mg PO DAILY@1800 12/11/17 04/26/18 History Fluticasone Nasal [place] [Flonase 2 spr EA NOSTRIL DAILY 04/22/18 04/26/18 History Nasal [place]] Allergies Allergy/AdvReac Type Severity Reaction Status Date / Time No Known Allergies Allergy Verified 04/26/18 09:05 Surgical - Exam Vital Signs Temp Pulse Resp BP Pulse Ox 98.1 F 62 16 127/57 97 04/26/18 09:12 04/26/18 09:12 04/26/18 09:12 04/26/18 09:12 04/26/18 09:12 - General well developed, no distress - Eyes PERRL - ENT normal pinna - Neck no masses - Respiratory normal expansion - Cardiovascular Rhythm: regular - Abdomen Abdomen: soft, non tender Assessment and Plan Assessment: Constipation. We'll perform colonoscopy.
--- NOTE | 2018-04-26 09:37 | P.OP ---
Date of Procedure: 04/26/18 Preoperative Diagnosis: Constipation Postoperative Diagnosis: Diverticulosis Procedure(s) Performed: Colonoscopy Anesthesia: MAC Surgeon: Ovi Mendoza Pathology: none sent Condition: stable Disposition: PACU Description of Procedure: The patient's placed on the endoscopy table in the lateral position. He received IV sedation. Digital rectal exam is performed which revealed no abnormalities. Possible colonoscope was then placed patient anus passed throughout the entire colon. The ileocecal valve sutures. The cecum, ascending and transverse colon appeared normal. The descending and sigmoid colon was examined and there were scattered diverticuli. The scope was then brought back the rectum and this appeared normal. Scope was withdrawn for patient.
[2018-04-26 09:58] VITALS: BP 118/76; PULSE 56
== END 2018-04-26 10:19 | disposition home or self-care (01) ==
LOC: ORWHC2ENDO 08:07
PROVIDERS: ATTEND Surgery
DX: K57.30 Diverticulosis of large intestine without perforation or abscess without bleeding (principal); I10 Essential (primary) hypertension; K21.9 Gastro-esophageal reflux disease without esophagitis; K44.9 Diaphragmatic hernia without obstruction or gangrene; F39 Unspecified mood [affective] disorder; Z79.899 Other long term (current) drug therapy; Z87.891 Personal history of nicotine dependence
CPT/HCPCS: 45378; J2001; J3010; J2704